=== PATIENT | female | born 1970 | race Caucasian/White ===

== ENCOUNTER 2019-08-15 09:36 | Outpatient (CLI) | payer BC, SELFPAY ==
--- NOTE | 2019-08-15 09:58 | EST_ITS ---
Patient Info Name: Raven Meredith Age: 49 years : 1970 Gender: Female Ht: 67 in Wt: 155 lbs BSA: 1.83 m2 Exam Date: 08/15/2019 10:46 AM Exam Location: [facility] Stress Patient Status: Outpatient Admit Date: 08/15/2019 Staff Ordering Physician: Keith Kinney MD Attending Provider: Keith Kinney MD Exercise Technologist: Alda Reyna RDCS Exercise Physician: Dwayne Wang DO Exam Type: CA stress test treadmill Study Info Indications R07.89 - Other chest pain A treadmill exercise stress test was performed. Summary 1. 1. Negative Alfredo exercise stress test for ischemic ST changes by ECG criteria. 2. 2. Good functional capacity, achieving 10 METs of workload. 3. 3. Appropriate HR response to exercise. 4. 4. Appropriate HR recovery at 1 minute post exercise. 5. 5. No imaging with stress testing. 6. 6. Patient informed of the above results. Protocol: Alfredo Stress ECG Details Stage: REST Duration (min): 0 min : 54 sec Speed (mph): 0.0 Grade (%): 0 HR (bpm): 91 SBP (mmHg): 128 DBP (mmHg): 92 METS: --- Stage: REST Duration (min): 6 min : 40 sec Speed (mph): 0.0 Grade (%): 0 HR (bpm): 90 SBP (mmHg): 128 DBP (mmHg): 92 METS: --- Stage: STAGE 1 Duration (min): 1 min : 0 sec Speed (mph): 1.7 Grade (%): 10 HR (bpm): 104 SBP (mmHg): 128 DBP (mmHg): 92 METS: --- Stage: STAGE 1 Duration (min): 2 min : 0 sec Speed (mph): 1.7 Grade (%): 10 HR (bpm): 108 SBP (mmHg): 128 DBP (mmHg): 92 METS: --- Stage: STAGE 1 Duration (min): 3 min : 0 sec Speed (mph): 1.7 Grade (%): 10 HR (bpm): 117 SBP (mmHg): 133 DBP (mmHg): 80 METS: --- Stage: STAGE 2 Duration (min): 1 min : 0 sec Speed (mph): 2.5 Grade (%): 12 HR (bpm): 125 SBP (mmHg): 133 DBP (mmHg): 80 METS: --- Stage: STAGE 2 Duration (min): 2 min : 0 sec Speed (mph): 2.5 Grade (%): 12 HR (bpm): 131 SBP (mmHg): 145 DBP (mmHg): 79 METS: --- Stage: STAGE 2 Duration (min): 3 min : 0 sec Speed (mph): 2.5 Grade (%): 12 HR (bpm): 134 SBP (mmHg): 145 DBP (mmHg): 79 METS: --- Stage: STAGE 3 Duration (min): 1 min : 0 sec Speed (mph): 3.4 Grade (%): 14 HR (bpm): 144 SBP (mmHg): 173 DBP (mmHg): 72 METS: --- Stage: STAGE 3 Duration (min): 2 min : 0 sec Speed (mph): 3.4 Grade (%): 14 HR (bpm): 150 SBP (mmHg): 173 DBP (mmHg): 72 METS: --- Stage: STAGE 3 Duration (min): 3 min : 0 sec Speed (mph): 3.4 Grade (%): 14 HR (bpm): 153 SBP (mmHg): 166 DBP (mmHg): 84 METS: --- Stage: RECOVERY Duration (min): 0 min : 59 sec Speed (mph): 0.0 Grade (%): 0 HR (bpm): 125 SBP (mmHg): 166 DBP (mmHg): 84 METS: --- Stage: RECOVERY Duration (min): 1 min : 59 sec Speed (mph)
--- NOTE | 2019-08-15 09:58 | ECG_ITS ---
Measurements Intervals [place] Rate: 78 P: 42 W[place]: 142 QRS: -20 QRSD: 102 T: 30 QT: 372 QTc: 425 Interpretive Statements SINUS RHYTHM LOW QRS VOLTAGE IN PRECORDIAL LEADS INCOMPLETE RIGHT BUNDLE BRANCH BLOCK BORDERLINE ECG Electronically Signed On 08-15-2019 13:34:43 [employer] ASSIST[employer] by Dwayne Wang D.O.
== END 2019-08-15 09:37 | disposition home or self-care (01) ==
PROVIDERS: PCP Family Medicine; Visit Provider Family Medicine
DX: R07.89 Other chest pain (principal); I45.10 Unspecified right bundle-branch block
CPT/HCPCS: 93005; 93017

== ENCOUNTER 2020-01-02 07:17 | Outpatient (CLI) | payer BC, SELFPAY ==
--- NOTE | ~2020-01-02 | NM_ITS ---
HEPATOBILIARY SCAN Procedure: Hepatobiliary scan performed following IV administration 4.8 mCi Tc 99m Choletec. At 60 m inutes 1.5 mcg CCK administered IV for evaluation of gallbladder ejection fraction. Indication:Common duct stones. Comparison: No prior studies for comparison. Findings: There is normal radiotracer uptake in the liver parenchyma with prompt excretion into the b iliary tract. Gallbladder visualized at 40 minutes. Small bowel visualized at 15 minutes. Normal g allbladder ejection fraction measures 84% (normal 10-90%, but most patients with gallbladder dysfunct ion have GBEF of less than 35%) Impression: 1: Normal hepatobiliary scan. Reviewed, dictated and finalized at location B. Impression: 1: Normal hepatobiliary scan.
== END 2020-01-02 07:18 | disposition home or self-care (01) ==
PROVIDERS: PCP Family Medicine; Visit Provider Family Medicine
DX: K80.50 Calculus of bile duct without cholangitis or cholecystitis without obstruction (principal)
CPT/HCPCS: 78227; A9537; J2805

== ENCOUNTER 2021-06-17 09:04 | Outpatient (RCR) | payer BC, SELFPAY ==
[2021-06-17 09:32] VITALS: BP 125/73; PULSE 101; RESP 20; TEMP 36.7; O2SAT 98
[2021-06-17] MEDS: diphenhydrAMINE HCl CAP 25 MG CAPSULE PO (09:45)
[2021-06-17] MEDS: FAMOTIDINE 20 MG TABLET PO (09:45)
[2021-06-17 11:08] VITALS: BP 122/68
--- NOTE | 2021-06-18 09:24 | PC.NURSE ---
Patient did not answer phone, asked patient to return my call with any questions or concerns.
== END 2021-06-17 16:11 ==
LOC: AMCINF 09:04
PROVIDERS: PCP Family Medicine; Visit Provider Internal Medicine Hematology & Oncology
DX: U07.1 COVID-19 (principal)
CPT/HCPCS: A9270; M0245; Q0245

== ENCOUNTER 2023-05-06 14:17 | Outpatient (CLI) | payer BC, SELFPAY ==
--- NOTE | ~2023-05-06 | MM_ITS ---
EXAMINATION: MM screening [facility] BI w yao HISTORY: Screening mammogram TECHNIQUE: Craniocaudal and mediolateral oblique 3-D tomosynthesis images were obtained and synthetic 2-D images were generated. CAD analysis was submitted and interpreted. COMPARISON: 07/14/2019, 04/17/2017, 01/01/2016 BREAST PARENCHYMAL COMPOSITION: There are scattered areas of fibroglandular density. FINDINGS: No suspicious mass, calcification, or architectural distortion are identified in either ori[place] ast to suggest malignancy. There has been no suspicious interval change. IMPRESSION: 1. No mammographic evidence of malignancy. 2. Recommend routine screening mammography in one year. BI-RADS Category 1: Negative Reviewed, dictated and finalized at location A. VISION ANNOUNCER
== END 2023-05-06 14:18 | disposition home or self-care (01) ==
LOC: CHSIMG 14:19
PROVIDERS: PCP Family Medicine; Visit Provider Family Medicine
DX: Z12.31 Encounter for screening mammogram for malignant neoplasm of breast (principal)
CPT/HCPCS: 77063; 77067

== ENCOUNTER 2024-05-18 14:15 | Outpatient (CLI) | payer BC, SELFPAY ==
--- NOTE | ~2024-05-18 | MM_ITS ---
EXAMINATION: MM screening [facility] BI w yao HISTORY: Screening TECHNIQUE: Craniocaudal and mediolateral oblique 3-D tomosynthesis images were obtained and synthetic 2-D images were generated. CAD analysis was submitted and interpreted. COMPARISON: Comparison to multiple prior studies sequentially, with oldest reviewed study dated 10/02. BREAST PARENCHYMAL COMPOSITION: Not dense: There are scattered areas of fibroglandular density. FINDINGS: There is no evidence of suspicious mass, calcification, or architectural distortion to sugg est malignancy in either breast. There has been no suspicious interval change. IMPRESSION: 1. No mammographic evidence of malignancy. 2. Recommend routine screening mammography in one year. BI-RADS Category 1: Negative Reviewed, dictated and finalized at location B. LE MANAGER
== END 2024-05-18 14:16 | disposition home or self-care (01) ==
PROVIDERS: PCP Family Medicine; Visit Provider Family Medicine
DX: Z12.31 Encounter for screening mammogram for malignant neoplasm of breast (principal)
CPT/HCPCS: 77063; 77067